=== PATIENT | female | born 1985 | race Caucasian/White ===

== ENCOUNTER 2023-06-12 11:40 | Outpatient (CLI) | payer BC, MEDICAID | END 2023-06-12 23:59 | disposition home or self-care (01) | LOC: RAD 11:40 | PROVIDERS: ATTEND Physician Assistant Medical | DX: U07.1 COVID-19 (principal); R50.9 Fever, unspecified; R53.83 Other fatigue; R93.5 Abnormal findings on diagnostic imaging of other abdominal regions, including retroperitoneum; R10.9 Unspecified abdominal pain; R10.2 Pelvic and perineal pain | CPT/HCPCS: 71046; 76700; 76856; 93976 ==